=== PATIENT | male | born 1945 | race Two or more races ===

== ENCOUNTER 2024-01-22 11:30 | Emergency (ER) | payer MEDICAID, OTHER ==
[~2024-01-22] VITALS: Ht 170.2 cm; Wt 86.4 kg
[2024-01-22] MEDS ORDERED: METF-1211 PO (11:43)
[2024-01-22] MEDS ORDERED: ATOR10TA PO (11:43)
[2024-01-22 11:44] VITALS: BP 114/67; PULSE 76; RESP 18; TEMP 98.8; O2SAT 99
[2024-01-22 12:14] LABS: COVID AG,FIA SOURCE NASAL SWAB
[2024-01-22 12:21] LABS: APPEARANCE,URINE CLEAR (CLEAR); BILIRUBIN,URINE NEGATIVE (NEGATIVE); COLOR,URINE YELLOW (YELLOW); GLUCOSE, URINE (UA) NEGATIVE (NEGATIVE); KETONES,URINE NEGATIVE (NEGATIVE); LEUKOCYTE ESTERASE ,URINE NEGATIVE (NEGATIVE); NITRATE,URINE NEGATIVE (NEGATIVE); OCCULT BLOOD,URINE NEGATIVE (NEGATIVE); PROTEIN,URINE TRACE mg/dL (NEGATIVE); SPECIFIC GRAVITIY, URINE 1.024 (1.003-1.030); UROBILINOGEN,URINE <=1.0 mg/dL (<=1.0)
[2024-01-22 12:22] LABS: BACTERIA,URINE None Seen /HPF (None Seen); RBC,URINE None Seen /HPF (0-2); WBC,URINE None Seen /HPF (0-5)
[2024-01-22 12:27] LABS: RAPID GROUP A STREP NEGATIVE (NEGATIVE)
[2024-01-22 12:41] LABS: SARS-COV2 (COVID) ANTIGEN,FIA Negative (Negative)
[2024-01-22 12:43] LABS: INFLUENZA TYPE A NEGATIVE FOR TYPE A (NEGATIVE); INFLUENZA TYPE B NEGATIVE FOR TYPE B (NEGATIVE)
[2024-01-22] MEDS: LIDOCAINE 5% TRANSDERMAL PATCH TD ONE (13:58)
[2024-01-22] MEDS: KETOROLAC TROMETHAMINE 30 MG/ML VIAL IM ONE (13:59)
[2024-01-22] MEDS: METHOCARBAMOL 500 MG TABLET PO ONE (13:59)
[2024-01-22] MEDS ORDERED: METH-659 PO (14:47)
[2024-01-22] MEDS ORDERED: IBUP-1492 PO (14:47)
== END 2024-01-22 15:05 | disposition home or self-care (01) ==
LOC: EMS 11:30
DX: M99.03 Segmental and somatic dysfunction of lumbar region (principal); M54.50 Low back pain, unspecified; E11.9 Type 2 diabetes mellitus without complications; I10 Essential (primary) hypertension; Z20.822 Contact with and (suspected) exposure to COVID-19
CPT/HCPCS: 99283; 87426; 81001; 87430; 87804; 96372; J1885

== ENCOUNTER 2024-02-07 07:58 | Day surgery (SDC) | payer OTHER ==
[~2024-02-07] VITALS: Ht 162.6 cm; Wt 86.3 kg
[~2024-02-07 07:58] MED LIST: AMLO-257 PO; ATOR10TA PO; IBUP-1492 PO; KETOROLAC TROMETHAMINE 0.5% 5 ML OPHTHALMIC SOLUTION ONE; METF-1211 PO; METH-659 PO; MOXIFLOXACIN HCL 0.5% 3 ML OPHTHALMIC SOLUTION ONE; PHENYLEPHRINE HCL 2.5% 2 ML OPHTHALMIC SOLUTION ONE; RINGERS SOLUTION,LACTATED 500 ML IV ONE; TAMS0.4C94 PO; TROPICAMIDE 1% 2 ML OPHTHALMIC SOLUTION ONE; VALS160T2 PO
[2024-02-07] MEDS ORDERED: MIDAZOLAM HCL 2 MG/2 ML VIAL IVP ONE (07:59)
[2024-02-07] MEDS: RINGERS SOLUTION,LACTATED 500 ML IV ONE (09:00)
[2024-02-07] MEDS: TROPICAMIDE 1% 2 ML OPHTHALMIC SOLUTION OS SCH (09:02)
[2024-02-07] MEDS: PHENYLEPHRINE HCL 2.5% 2 ML OPHTHALMIC SOLUTION OS SCH (09:02)
[2024-02-07] MEDS: KETOROLAC TROMETHAMINE 0.5% 5 ML OPHTHALMIC SOLUTION OS SCH (09:02)
[2024-02-07] MEDS: MOXIFLOXACIN HCL 0.5% 3 ML OPHTHALMIC SOLUTION OS SCH (09:03)
[2024-02-07 09:15] LABS: GLUCOMETER DEV NAME(LOC) SDS.; GLUCOSE,POINT OF CARE 121 MG/DL (70-110)
[2024-02-07] MEDS: EPINEPHrine 1:1,000 [1 MG/ML] VIAL ONE (10:40)
[2024-02-07] MEDS: POVIDONE-IODINE 5% 30 ML OPHTHALMIC SOLUTION ONE (10:40)
[2024-02-07] MEDS: BALANCED SALT 15 ML OPHTHALMIC IRRIG.SOLN ONE (10:40)
[2024-02-07] MEDS: LIDOCAINE/PF 1% 2 ML VIAL ONE (10:40)
[2024-02-07] MEDS: TETRACAINE HCL/PF 0.5% 4 ML OPHTHALMIC SOLUTION ONE (10:40)
== END 2024-02-07 12:20 | disposition home or self-care (01) ==
LOC: SURGERY 07:58
PROVIDERS: ATTEND Ophthalmology
DX: E11.36 Type 2 diabetes mellitus with diabetic cataract (principal); H25.12 Age-related nuclear cataract, left eye; R94.31 Abnormal electrocardiogram [ECG] [EKG]; Z85.46 Personal history of malignant neoplasm of prostate; Z79.899 Other long term (current) drug therapy; Z98.890 Other specified postprocedural states
CPT/HCPCS: 66984; 82962; 93005; J0171; J3490; J2250; J7120; V2630